=== PATIENT | female | born 1980 | race Caucasian/White ===

== ENCOUNTER 2019-12-15 17:47 | Emergency (ER) | payer MEDICAID, SELFPAY ==
[2019-12-15 17:51] VITALS: BP 134/79; PULSE 106; RESP 16; TEMP 36.6; O2SAT 94; BMI 23.6
--- NOTE | 2019-12-15 18:08 | W.ED.ANIMALB ---
HPI - Animal Bite General: Chief Complaint: Animal Bite Stated Complaint: animal bite Time Seen by Provider: 12/15/19 18:01 Source: patient Mode of arrival: ambulatory Limitations: no limitations History of Present Illness: HPI narrative: Patient comes into be evaluated for an injury that occurred from a cat bite on Friday. Patient states that is her animal and she is able to monitor it and it appears well. Patient's reports that her tetanus last one was in 1997 but she would like to go to the health department to get updated. Patient is concerned due to some redness surrounding the area and some purulent drainage from the wound itself. Patient appears well. Patient appears in no severe distress. Review of Systems General: Reports: 10 or more systems reviewed and unremarkable except in HPI and below Skin/Breast: Reports: redness PFSH ED PFSH: Statuses (acute, chronic, etc) shown below reflect problem list status as previously entered and may not be historically accurate Social History Smoking and tobacco status: former smoker Physical Exam Const: COMMON NORMALS: no apparent distress and oriented x3 GENERAL APPEARANCE: cooperative HENMT: COMMON NORMALS: normocephalic, external ears normal, EAC's normal, TM's normal bilaterally and external nose normal HEAD & SCALP: normal to inspection and normocephalic FACE & SINUS: normal facial exam NOSE: external nose normal GENERAL EAR: hearing not grossly impaired EXTERNAL EAR: Yes external ears normal EXTERNAL AUDITORY CANAL: EAC's normal TYMPANIC MEMBRANE: TM's normal bilaterally MOUTH: oral and palatal mucosa normal THROAT: posterior oropharynx normal Eye: COMMON NORMALS: PERRL and EOMs intact bilaterally PUPIL: Yes PERRL Neck/C-Spine: COMMON NORMALS: full ROM and no lymphadenopathy Lymph: LYMPHATIC: no lymphedema noted Chest: COMMONS NORMALS: inspection of chest normal and palpation of chest normal Resp: COMMON NORMALS: normal respiratory effort and clear to auscultation bilaterally AUSCULTATION: clear to auscultation bilaterally Cardio: COMMON NORMALS: regular rate and regular rhythm RATE: regular rate RHYTHM: regular rhythm GI: COMMON NORMALS: normal to inspection, nondistended, normoactive bowel sounds and non-tender : COMMON NORMALS: Yes no CVA tenderness BLADDER/KIDNEY EXAM: Yes no CVA tenderness Back/Pelvis: COMMON NORMALS: no CVA tenderness and thoracic and lumbar spine normal to inspection Extremity: GENERAL: Yes edema RIGHT UPPER EXTREMITY: Yes lower arm (6 cm area of redness surrounding puncture wound, minimal swelling) Neuro: COMMON NORMALS: oriented x3, moves all extremities and no focal motor deficits Psych: COMMON NORMALS: mental status grossly normal and cooperative Skin: COMMON NORMALS: no rashes or lesions noted GENERAL SKIN EXAM: no rashes or lesions noted Course Vital Signs: Vital signs: Vital Signs Temperature 97.6 F 12/15/19 18:22 Pulse Rate 97 12/15/19 18:22 Respiratory Rate 16 12/15/19 18:22 Blood Pressure 116/72 12/15/19 18:22 Pulse Oximetry 98 12/15/19 18:22 MDM - Animal Bite MDM Narrative: Medical decision making narrative: Patient comes in today for complaints of injury to the right forearm from her cat. Cat had bit her 2 days ago patient was concerned because yesterday she noted increased redness and tenderness to the puncture wound and was able to express some purulent drainage. Patient states today that the pain is better but she has surrounding tissue redness that she is concerned about. Exam notes erythema to the right forearm. Respirations are even lungs are clear to auscultation. Vital signs are stable. Differential diagnosis includes cellulitis, need for prophylaxis tetanus and rabies, puncture wound, foreign body. No foreign body was noted in the wound. Area is slightly tender but not painful. Reviewed exam with patient with recommendations for treatment and need for follow-up. Also discussed rabies and monitoring her pet. Patient reports understanding and agreed to plan. Discharge Plan Discharge Patient Disposition: Home, Self-Care Clinical Impression: Bite by animal Cellulitis Qualifiers: Site of cellulitis: extremity Site of cellulitis of extremity: upper extremity Laterality: right Qualified Code(s): L03.113 - Cellulitis of right upper limb Condition: Stable Prescriptions: New clindamycin HCl 150 mg capsule 300 mg PO Q8H 7 Days Qty: 42 RF: 0 Discharge Orders: Discharge Order (Routine); Ordered 12/15/19 Ordered By: Philip Lima Referrals: Armando Maloney MD [Primary Care Provider] - Butch Otero MD [Family Provider] - Discharge Diet: Usual diet Discharge Activity: Resume usual activity Patient Instructions: Cellulitis (ED) Activity Restrictions/Additional Instructions: Drink plenty of water with medications Activity as tolerated Acetaminophen and ibuprofen as needed for pain Take antibiotics as directed Follow-up with primary care in one week as needed Return to ER for worsening signs and symptom Take pet to vet for any concerns of illness Discharge Date/Time: 12/15/19 18:23 Coding Level of Care Code ED [place] Worker for Betty Fwdarrell Exam Problem Focused
[2019-12-15 18:09] VITALS: BP 115/73; PULSE 98; RESP 18; TEMP 36.3; O2SAT 97
[2019-12-15 18:22] VITALS: BP 116/72; PULSE 97; RESP 16; TEMP 36.4; O2SAT 98
== END 2019-12-15 18:23 | disposition home or self-care (01) ==
PROVIDERS: Emergency Provider Nurse Practitioner Family; Family Provider Family Medicine; PCP Obstetrics & Gynecology
DX: L03.113 Cellulitis of right upper limb (principal); Z87.891 Personal history of nicotine dependence; W55.01XA Bitten by cat, initial encounter
CPT/HCPCS: 99281

== ENCOUNTER → 2020-09-20 10:39 | Outpatient (BNVA) | payer MEDICAID, SELFPAY | PROVIDERS: Family Provider Family Medicine; PCP Obstetrics & Gynecology; Visit Provider Nurse Practitioner Family | DX: Z20.828 Contact with and (suspected) exposure to other viral communicable diseases (principal) | CPT/HCPCS: 87635 ==

== ENCOUNTER 2020-11-15 10:21 | Outpatient (CLI) | payer BC, MEDICAID, SELFPAY ==
--- NOTE | 2020-11-15 10:30 | MM_ITS ---
WS: [id number] SCREENING DIGITAL MAMMOGRAM WITH CAD HISTORY: SCREENING COMPARISON: None available. Bilateral CC and MLO views submitted. Computer aided detection analyzed. Breast composition: The breasts are heterogeneously dense, which may obscure small masses. No suspici ous masses, microcalcifications or architectural distortion. MM/[place] [id number] IMPRESSION: BI-RADS: 1-Negative FOLLOW UP: 1 Year Follow-up
== END 2020-11-15 10:22 | disposition home or self-care (01) ==
LOC: RADSHAW 10:28
PROVIDERS: PCP Nurse Practitioner Women's Health; Visit Provider Obstetrics & Gynecology
DX: Z12.31 Encounter for screening mammogram for malignant neoplasm of breast (principal)
CPT/HCPCS: 77067

== ENCOUNTER → 2021-10-17 14:58 | Outpatient (BNVA) | payer BC, MEDICAID, SELFPAY | PROVIDERS: PCP Nurse Practitioner Women's Health; Visit Provider Nurse Practitioner Women's Health | DX: Z01.419 Encounter for gynecological examination (general) (routine) without abnormal findings (principal) | CPT/HCPCS: 88175 ==

== ENCOUNTER → 2021-11-08 08:39 | Outpatient (BNVA) | payer BC, MEDICAID, SELFPAY | PROVIDERS: PCP Nurse Practitioner Women's Health; Visit Provider Nurse Practitioner Women's Health | DX: Z30.46 Encounter for surveillance of implantable subdermal contraceptive (principal) | CPT/HCPCS: 81025 ==

== ENCOUNTER 2021-11-16 09:55 | Outpatient (CLI) | payer BC, MEDICAID, SELFPAY ==
--- NOTE | 2021-11-16 10:00 | MM_ITS ---
WS: [id number] SCREENING DIGITAL MAMMOGRAM WITH CAD HISTORY: Z12.39 - Encounter for other screening for malignant neoplasm COMPARISON: 11/15/2020 Bilateral CC and MLO views submitted. Computer aided detection analyzed. Breast composition: The breasts are heterogeneously dense, which may obscure small masses. Very subtle asymmetry measuring 10 mm in the medial posterior RIGHT breast. Otherwise the parenchyma is stable. No architectural distortion. MM/[place] [id number] IMPRESSION: BI-RADS: 0-Incomplete: Need additional imaging evaluation FOLLOW UP: Need Additional Imaging RIGHT breast: Spot compression views (CC ). True ML. Ultrasound to follow if ab normality persists.
== END 2021-11-16 09:56 | disposition home or self-care (01) ==
LOC: RADSHAW 10:00
PROVIDERS: PCP Nurse Practitioner Women's Health; Visit Provider Nurse Practitioner Women's Health
DX: Z12.31 Encounter for screening mammogram for malignant neoplasm of breast (principal)
CPT/HCPCS: 77067

== ENCOUNTER 2021-12-04 09:02 | Outpatient (CLI) | payer BC, MEDICAID, SELFPAY ==
--- NOTE | 2021-12-04 09:00 | MM_ITS ---
WS: [id number] ADDITIONAL VIEWS RIGHT BREAST HISTORY: R92.8 - Other abnormal and inconclusive findings on diagnostic imaging. COMPARISON: 2 and 11/15/2020 Compression views right CC and MLO projection. True ML also submitted. The asymmetry noted in the posterior medial RIGHT breast resolves with additional imaging. No persist ent abnormality. MM/[place] [id number] IMPRESSION: BI-RADS: 2-Benign FOLLOW-UP: 1 Year Follow-up
== END 2021-12-04 09:03 | disposition home or self-care (01) ==
LOC: RADSHAW 09:04
PROVIDERS: PCP Nurse Practitioner Women's Health; Visit Provider Nurse Practitioner Women's Health
DX: R92.8 Other abnormal and inconclusive findings on diagnostic imaging of breast (principal)
CPT/HCPCS: 77065

== ENCOUNTER 2022-12-04 10:48 | Outpatient (CLI) | payer BC, MEDICAID, SELFPAY ==
--- NOTE | 2022-12-04 11:09 | MM_ITS ---
WS: [id number] BILATERAL SCREENING DIGITAL TOMOSYNTHESIS MAMMOGRAM WITH CAD HISTORY: SCREENING COMPARISON: 11/16/2021, 11/15/2020 Bilateral CC and MLO views with tomosynthesis and synthetic mammography submitted. Computer aided det ection analyzed. Breast composition: The breasts are heterogeneously dense, which may obscure small masses. No suspici ous masses, microcalcifications or architectural distortion. MM/[place] [id number] IMPRESSION: BI-RADS: 1-Negative FOLLOW UP: 1 Year Follow-up
== END 2022-12-04 10:49 | disposition home or self-care (01) ==
PROVIDERS: PCP Nurse Practitioner Women's Health; Visit Provider Nurse Practitioner Women's Health
DX: Z12.31 Encounter for screening mammogram for malignant neoplasm of breast (principal)
CPT/HCPCS: 77063; 77067

== ENCOUNTER 2023-12-08 08:45 | Outpatient (CLI) | payer MEDICAID, SELFPAY ==
--- NOTE | 2023-12-08 08:56 | MM_ITS ---
WS: [id number] BILATERAL SCREENING DIGITAL TOMOSYNTHESIS MAMMOGRAM WITH CAD HISTORY: SCREENING COMPARISON: 12/04/2022, 12/04/2021 and 11/16/2021, 11/15/2020 Bilateral CC and MLO views with tomosynthesis and synthetic mammography submitted. Computer aided det ection analyzed. Breast composition: The breasts are extremely dense, which lowers the sensitivity of mammography. No suspicious masses, microcalcifications or architectural distortion. The asymmetries within each breas t are stable over multiple prior years. IMPRESSION: MM/[place] [id number] BI-RADS: 2-Benign FOLLOW UP: 1 Year Follow-up
== END 2023-12-08 08:46 | disposition home or self-care (01) ==
LOC: RAD 08:45
PROVIDERS: PCP Family Medicine Adult Medicine; Visit Provider Nurse Practitioner Women's Health
DX: Z12.31 Encounter for screening mammogram for malignant neoplasm of breast (principal); R92.30 Dense breasts, unspecified; N64.89 Other specified disorders of breast
CPT/HCPCS: 77063; 77067

== ENCOUNTER 2023-12-30 14:32 | Emergency (ER) | payer MEDICAID, SELFPAY ==
[2023-12-30 14:40] VITALS: BP 109/61; PULSE 87; RESP 18; TEMP 36.8; O2SAT 95; BMI 26.5
--- NOTE | 2023-12-30 14:44 | XR_ITS ---
WS: [id number] Exam: XR wrist LT min 3V* [id number] Date/Time of Exam: 12/30/2023 2:44 PM Reason For Exam: injury There is an impacted markedly comminuted fracture of the distal radius with significant dorsal angula tion and displacement of the distal fragments. There is also avulsion of the ulnar styloid. There is significant shortening of the radius. Soft tissue edema and deformity of the wrist. IMPRESSION: 1. Severely comminuted angulated displaced fracture of the distal radius as detailed above. 2. Displaced ulnar styloid fracture.
--- NOTE | 2023-12-30 14:59 | ED_ITS ---
HPI - Extremity Problem General: Chief complaint: Extremity Injury, Upper Stated complaint: left wrist pain Time Seen by Provider: 12/30/23 14:47 Source: patient Mode of arrival: ambulatory Limitations: no limitations History of Present Illness: 43-year-old female states she was skatin g and fell on outstretched left arm states she had injured her left wrist when she fell on it she has obvious deform ity to that left wrist. Patient denies any other injuries denies hitting head rates her pain a 5 out of 10 Associated symptoms: Deny chest pain, fever(s) or rash Review of Systems Const: Denies: fever(s) or chills ENMT: Denies: throat pain or dental pain Card: Denies: chest pain Resp: Denies: dyspnea GI: Denies: abdominal pain, nausea, vomiting or diarrhea Musc: Reports: extremity pain; Denies: neck pain or back pain Skin/Breast: Denies: rash Neuro: Denies: headache(s) PFSH ED PFSH: Medical History Atopic dermatitis and related condition Blindness of left eye Allergic reaction History of gestational diabetes Had GDM with pregnancies in 2002, 2005, and 2008. 06/04/2018: Fasting glucose 81. A1c 5.0. Surgical History History of dilation and curettage (~03/2003) For retained placental fragments after delivery of IUFD. Family History Grandmother Breast cancer maternal--dx age 75 Mother Hypertension Stroke Grandfather Diabetes Maternal Stroke Maternal Denies family history of Colon cancer Ovarian cancer Heart disease Hypercholesteremia Uterine cancer Thyroid disease Physical Exam Const: COMMON NORMALS: no acute distress, patient oriented x3 and healthy appearing HENMT: COMMON NORMALS: normocephalic and atraumatic HEAD & SCALP: normocephalic and atraumatic Neck/C-Spine: COMMON NORMALS: full ROM and supple Chest: COMMONS NORMALS: normal inspection of the chest Resp: COMMON NORMALS: normal respiratory effort Cardio: COMMON NORMALS: regular rate, regular rhythm and No murmurs present (Cardio) RATE: regular rate RHYTHM: regular rhythm Extremity: COMMON NORMALS: full ROM NARRATIVE EXTREMITY EXAM: Obvious deformity to the left wrist distal pulses sensation intact Abrasion noted to right knee as well Neuro: COMMON NORMALS: patient oriented x3, moves all extremities and no focal motor deficits Psych: COMMON NORMALS: mental status grossly normal, Normal thought process present and cooperative THOUGHT PROCESS: Normal thought process present Skin: COMMON NORMALS: no rashes or lesions noted and no wounds GENERAL SKIN EXAM: no rashes or lesions noted Procedures Orthopedic Fracture Reduction Fracture #1: Time Out Performed: Yes Side: right Fracture Reduction Location: radius and ulna Analgesia: procedural sedation Technique: direct manipulation Post Reduction X-rays Demonstrate: anatomical reduction Post-reduction neuro exam: intact Post-reduction vascular exam: intact Splint Applied: Yes Patient Tolerated Procedure: well Procedural Sedation Indication: fracture/dislocation reduction ASA Class: I Time of Last PO Intake: 12:00 Preparation: vehicle monitor technician applied and pulse oximeter IV Propofol dose (mg): 80 Patient Tolerated Procedure: well Complications: none Course Vital Signs: Vital signs: Vital Signs Temperature 98.2 F 12/30/23 14:40 Pulse Rate 91 12/30/23 16:20 Respiratory Rate 17 12/30/23 16:00 Blood Pressure 128/99 12/30/23 16:20 Pulse Oximetry 100 12/30/23 16:20 Oxygen Delivery Me thod Room Air 12/30/23 16:20 MDM - Extremity (Nontraumatic) Medical Decision Making Patient presents here with a right wrist fracture from a fall was displaced patient was sedated and reduced placed in a splint we will get her follow-up with orthopedics she is return if worsening she understands agrees to plan Medical Records I reviewed the patient's medical records. All radiology interpretation(s) finalized by discharge Discharge Plan Discharge Patient Disposition: Home Clinical Impression: Fracture of wrist Qualifiers: Encounter type: initial encounter Fracture type: closed Laterality: right Qualified Code(s): S62.101A - Fracture of unspecified carpal bone, right wrist, initial encounter for closed fracture Condition: Stable Prescriptions: New hydrocodone-acetaminophen 5-325 mg tablet 1 tab PO Q6H PRN (Reason: pain) Qty: 14 0RF ondansetron 4 mg tablet,disintegrating 4 mg PO Q6H PRN (Reason: nausea and vomiting) Qty: 14 0RF No Action lidocaine-epinephrine (PF) 2 %-1:200,000 solution 3 ml SUBCUT ONCE Qty: 1 0RF povidone-iodine [Betadine Swabsticks] 10 % swab 1 applic topical ONCE Qty: 1 0RF Nexplanon 68 mg implant 1 implant subdermal ONCE Qty: 1 0RF fexofenadine [Maddison Allergy] 60 mg tablet 60 mg PO BID biotin 1 mg capsule 1 mg PO DAILY Nexplanon 68 mg implant 1 implant SUBDERMAL ONCE prednisone 20 mg tablet 60 mg PO DAILY 5 Days Qty: 15 0RF hydrocortisone 2.5 % cream 1 applic topical BID PRN (Reason: skin irritation) Qty: 28 0RF Discharge Orders: Discharge ED (Routine); Ordered 12/30/23 Ordered By: Marcelo Cazares Referrals: Fausto Darnell MD [Primary Care Provider] - Maurice Bliss DO [Physician] - 1-3 days Discharge Diet: Advance as tolerated Discharge Activity: Resume usual activity Patient Instructions: Wrist Fracture in Adults (ED), Opioid Safety Coding Level of Care Code ED Printing Machine Operator for Betty Gonzales
[2023-12-30] MEDS: sodium chloride 0.9% 1,000 ML 999 ML IV (15:40)
[2023-12-30 16:00] VITALS: BP 162/93; PULSE 104; RESP 17; O2SAT 100
[2023-12-30] MEDS: propofol 10 mg/mL SDV 20 mL 100 MG IVP (16:00)
--- NOTE | 2023-12-30 16:03 | XRR_ITS ---
PROCEDURE INFORMATION: Exam: XR Left Wrist Exam date and time: 12/30/2023 4:05 PM Age: 43 years old Clinical indication: Injury or trauma; Fall; Blunt trauma (contusions or hematomas); Wrist; Left; Additional info: Post reduction TECHNIQUE: Imaging protocol: Radiologic exam of the left wrist. Views: 1 or 2 views. COMPARISON: CR XR wrist LT min 3V* [id number] 12/30/2023 2:49 PM FINDINGS: Bones/joints: Postreduction views of the left wrist were obtained through a cast demonstrating marked interval improvement of alignment of the distal radial and ulnar styloid fractures. Displacement and impaction deformities have been corrected. Soft tissues: Obscured. XR/XR wrist LT 2V [id number] IMPRESSION: As above.
--- NOTE | 2023-12-30 16:05 | PC.NURSE ---
PROPOFOL ADMINISTERED BY DR. CHAVEZ DURING PROCEDURE.
--- NOTE | 2023-12-30 16:09 | XRR_ITS ---
PROCEDURE INFORMATION: Exam: XR Right Knee Exam date and time: 12/30/2023 4:15 PM Age: 43 years old Clinical indication: Injury or trauma; Fall; Blunt trauma; Knee; Right TECHNIQUE: Imaging protocol: Radiologic exam of the right knee. Views: 3 views. COMPARISON: No relevant prior studies available. FINDINGS: Bones/joints: Normal. Soft tissues: Normal. XR/XR knee RT 3V* [id number] IMPRESSION: No acute findings.
[2023-12-30 16:20] VITALS: BP 128/99; PULSE 91; O2SAT 100
[2023-12-30 16:40] VITALS: BP 144/90; PULSE 103; O2SAT 98
--- NOTE | 2023-12-31 12:00 | DCPLANNER ---
Message sent to Ortho for a follow up -- wrist FX.
== END 2023-12-30 16:41 | disposition home or self-care (01) ==
PROVIDERS: Emergency Provider Emergency Medicine; PCP Family Medicine Adult Medicine
DX: S52.592A Other fractures of lower end of left radius, initial encounter for closed fracture (principal); S52.612A Displaced fracture of left ulna styloid process, initial encounter for closed fracture; W19.XXXA Unspecified fall, initial encounter; Y93.51 Activity, roller skating (inline) and skateboarding
CPT/HCPCS: 25605; 73100; 73110; 73562; 96360; 99152; 99285; J2704; J7030

== ENCOUNTER → 2024-01-01 15:44 | Outpatient (BNVA) | payer MEDICAID, SELFPAY | PROVIDERS: PCP Family Medicine Adult Medicine; Referring Provider Emergency Medicine; Visit Provider Student in an Organized Health Care Education/Training Program | DX: S62.101A Fracture of unspecified carpal bone, right wrist, initial encounter for closed fracture (principal); S52.502A Unspecified fracture of the lower end of left radius, initial encounter for closed fracture; W19.XXXA Unspecified fall, initial encounter; Y93.51 Activity, roller skating (inline) and skateboarding; Y92.410 Unspecified street and highway as the place of occurrence of the external cause | CPT/HCPCS: 73110 ==

== ENCOUNTER 2024-01-02 12:15 | Day surgery (SDC) | payer MEDICAID, SELFPAY ==
[2024-01-02] VITALS (15 sets, daily range): BP systolic 102–144; BP diastolic 56–91; PULSE 83–107; RESP 16–20; TEMP 36.3–37.1; O2SAT 94–98
--- NOTE | 2024-01-02 | XR_ITS ---
WS: [id number] Left wrist, 3 views, 01/02/2024 Clinical Data: [facility] P[facility] Comparison: Left wrist, 01/01/2024. Findings: Dr. Bliss performed internal fixation of a distal left radial fracture. Impression: Internal fixation of distal left radial fracture.
--- NOTE | 2024-01-02 12:52 | W.PM.OPSUD ---
Surgery/Procedure H&P Update DATE OF PROCEDURE: January 02, 2024 DATE H&P PERFORMED: 01/01/24 H&P UPDATE INFORMATION: I have reviewed H&P completed within last 30 days, I have examined patient prior to procedure and No changes to prior documentation CHANGES TO PREVIOUS DOCUMENTATION: None PREOP DIAGNOSIS: Left distal radius and ulnar styloid fracture PRIMARY INDICATION FOR PROCEDURE: Left distal radius and ulna styloid fracture PLANNED PROCEDURE: Operation Date: 01/02/24 14:20 Proposed Procedures p ORIF Distal Radius(Left) - Maurice Bliss DO
[2024-01-02 13:02] LABS: OR HCG Qualitative Urine Negative (Negative)
[2024-01-02] MEDS: sodium chloride 0.9% 1,000 ML 30 ML IV (13:07)
[2024-01-02] MEDS: acetaminophen 1,000 MG/100 ML PIGGYBACK 400 MG IV (13:09)
[2024-01-02] MEDS: ketorolac 30 mg/mL INJ IVP (13:12)
[2024-01-02] MEDS: scopolamine 1.5 Patch 1 PATCH TRANSDERMA (13:13)
--- NOTE | 2024-01-02 13:15 | ANES.PREANE2 ---
Pre-Anesthetic Assessment Height/Weight: Height 1.57 m Weight 65.771 kg BP O2 Del Method 144/91 Room Air 01/02/24 13:13 01/02/24 12:38 Preop Diagnosis: Left distal radius and ulnar styloid fracture Operation Date: 01/02/24 14:20 Proposed Procedures p ORIF Distal Radius(Left) - Maurice Bliss, DO Was Beta Camille taken within 24 hours: N/A Was Clonidine taken within 24 hours: N/A Last intake: Intake Last Liquid Date 01/01/24 Last Liquid Time 23:50 Last Solid Date 01/01/24 Last Solid Time 18:00 Social No alcohol and No tobacco Exam alert and oriented x 3 Airway Submandibular: within normal limits Cervical ROM: within normal limits Mallampati: Class II History/ROS No significant history except as noted and No significant complaints Anesthetic Plan ASA status: 2 Anesthesia: General and Regional (specify below) Other: Supraclavicular block per surgeon request for post op pain Risk of > 500 ml blood loss (7ml/kg in children): No Medications/Allergies Home Medications Medication Instructions Recorded Confirmed Last Taken Type biotin 1 mg capsule 1 mg PO DAILY 07/03/20 01/01/24 01/01/24 History etonogestrel 68 mg subdermal 1 implant subdermal ONCE placed 07/03/20 01/01/24 Unknown History implant (Nexplanon) fexofenadine 60 mg tablet (Maddison 60 mg PO BID 11/08/21 01/01/24 Unknown History Allergy) hydrocortisone 2.5 % topical cream 1 applic topical BID PRN skin 09/17/23 01/01/24 Unknown Rx irritation #28 grams hydrocodone 5 mg-acetaminophen 325 1 tab PO Q6H PRN pain #14 tabs 12/30/23 01/01/24 01/01/24 08:00 Rx mg tablet ondansetron 4 mg disintegrating 4 mg PO Q6H PRN nausea and 12/30/23 01/01/24 Unknown Rx tablet vomiting #14 tabs pimecrolimus 1 % topical cream 1 applic topical BID PRN itching 01/01/24 01/01/24 Unknown History Allergies Allergy/AdvReac Type Severity Reaction Status Date / Time No Known Allergies Allergy Verified 01/01/24 15:35 Current Medications Generic Name Dose Route Start Last Admin Trade Name Freq PRN Reason Stop Dose Admin Sodium Chloride 1,000 mls @ 30 mls/hr 01/02/24 13:00 01/02/24 13:07 Sodium Chloride 0.9% IV 30 mls/hr .Q24H MIKE Administration PFSH Anesthesia Medical History Atopic dermatitis and related condition Blindness of left eye Allergic reaction History of gestational diabetes Had GDM with pregnancies in 2002, 2005, and 2008. 06/04/2018: Fasting glucose 81. A1c 5.0. Surgical History History of dilation and curettage (~03/2003) For retained placental fragments after delivery of IUFD. Family History Grandmother Breast cancer maternal--dx age 75 Mother Hypertension Stroke Grandfather Diabetes Maternal Stroke Maternal Denies family history of Colon cancer Ovarian cancer Heart disease Hypercholesteremia Uterine cancer Thyroid disease Female Reproductive History Date of last menstrual period: 12/17/23 Data Anesthesia Cardiac Studies: No Data to Display
--- NOTE | 2024-01-02 13:56 | SUR.PREOP ---
Nerve block to left upper arm completed per Dr. Mcintosh, anesthesia. Versed 3 mg given per anesthesia prior to procedure. O2 at 2 L via nasal cannula applied. Sao2 98%. Pt resting comfortably now. Call light within reach. Continuous pulse ox in place.
[2024-01-02] MEDS: ceFAZolin 2,000 MG in sodium chloride 0.9% (plus) 50 ML 100 MG IV (16:06)
--- NOTE | 2024-01-02 17:12 | P.BOP_ITS ---
Date of Procedure: 01/02/2024 Surgeon: Maurice Bliss DO Behavioral Health Clinician(s): Eino Bliss PA-C Procedure(s) performed: Left distal radius open reduction internal fixation (3 part intra-articular) Findings of the procedure(s): Patient found to have three-part intra-articular left distal radius fracture, underwent procedure as planned with no complications or issues stable DRUJ joint. Estimated blood loss: 5 mL Specimen(s) removed: None Post-operative diagnosis: Left distal radius fracture three-part intra-articular
--- NOTE | 2024-01-02 17:13 | P.OP_ITS ---
Operative Report Date of procedure: January 02, 2024 Surgeon: Maurice Bliss DO Biophysics Teacher: Enio Bliss PA-C: PA was necessary for assistance in this case with hand positioning to execute the procedure, retraction and protection of neurovascular structures as well as to assist with wound closure and dressing application. Procedure: Preop Diagnosis ?Left?distal?radius?fracture? Procedure: Post-op diagnosis: Same, 3 part intra-articular Procedure done: Left?distal?radius?open reduction internal fixation, 3-part intra-articular Implants: ?Arthrex left 3-hole standard volar locking plate Combination of locking and nonlocking screws 2.7 mm?distal Combination of locking and nonlocking screws 3.5 mm proximal Surgeon: Maurice Bliss DO Anesthesia: General and nerve Block (Regional) Estimated blood loss: 5 mL Tourniquet time: 29 minutes IV fluids: See anesthesia record Complications: None Findings: See operative report narrative Condition: stable Disposition: same day Brief History: Patient is a 43-year-old female who presented to my office for a ixdrt-[id number]-[id number] left?distal?radius?fracture.? Patient has significant comminution and shortening as well as dorsal angulation patient active and at this point time through shared decision making patient like to proceed with a left?distal?radius?ORIF.? We had a detailed discussion in the office about nonoperative and operative intervention.? At this point time I feel through shared decision? best option would be open reduction internal fixation she is active, young To optimize her postoperative outcome with early range of motion and as result through shared decision making patient would like to proceed with ORIF left?distal?radius?fracture.? Detail the risk benefits complication alternatives to treatment option.? Understanding risk for surgery patient elects to proceed with surgical intervention.? All questions been answered at this time. Procedure: Patient seen and evaluated in the preoperative holding area.? Consent reviewed and signed with patient.? Correct extremities were marked and consent was reviewed and signed.? Patient was seen and evaluated by anesthesia department.? Underwent regional anesthesia. Once cleared for surgery pt was taken back to the operative suite.? Patient was then transported into the operative suite and kept on the OR gurney, all bony prominences well-padded patient was appropriate secured to bed in supine position.? An armboard was applied to the left upper extremity.? The left upper extremity had a nonsterile tourniquet applied.? Patient subsequently was then prepped and draped in standard orthopedic fashion she underwent anesthesia per the anesthesia department.? A final timeout was performed.? Patient received appropriate preoperative antibiotics. Esmarch was used exsanguinate the left upper extremity and tourniquet was ins ufflated to 250 mmHg. A standard modified FCR volar approach was performed to the left?distal?radius.? Sharp scalpel incision through skin and subcutaneous tissue.? I then switched to Littler dissection scissors identify the FCR tendon releases out of the sheath both proximally and?distally mobilized the tendon ulnarly and then subsequently incised the floor of the FCR tendon sheath with care to just incise the floor.? I then bluntly sweep the FPL tendon muscle belly ulnarly and placed blunt self- retaining retractor.? At this point time I direct visualization of the pronator quadratus which was incised in standard L fashion off the radial and?distal?border in the?distal?radius?and fracture site was scraped clean of interposed muscle belly.? I then identified the 3 part intra-articular?dis brigette?radius?fracture.? This was subsequently opened above and freed of interposing muscle belly as well as periosteum and fracture hematoma.? I did have to utilize my [place] which was placed through the fracture pattern and disengage the fracture and performed manual manipulation and anatomic reduction of the?distal?radius?fracture.? ?Once satisfied with reduction and had appropriate anatomic reduction of the volar cortex.? This was confirmed with mini C arm in multiple orthogonal imaging.? At this point time? I selected a Arthrex anatomic?distal?radius?plate utilizing a standard 3-hole plate which would have appropriate spread?distally.? This was then placed up to the?distal?radius?while maintaining my reduction, pins were placed?distally and proximally to confirm appropriate placement of the plate along the?distal?radius.? Minor adjustments were made and once I was satisfied I then subsequently drilled a bicortical 3.5 screw proximally in the oblong hole to allow for appropriate sliding of the?distal?radius?plate appropriately to perfect position on the?distal?radius.? This had excellent fixation and purchase and brought the plate to bone.? While maintaining my reduction I then confirmed in multiple orthogonal imaging that my plate was in appropriate position.? Once satisfied with my position I then subsequently placed the peek targeting guide on the?distal?locking screws with Arthrex.? The locking guide was then subsequently loaded and I subsequently drilled and placed a fully threaded cortical screw to compress the plate to bone for the?distal?fracture fragment.? This was performed with plan to then remove this and placed a shorter locking screw had bicortical fixation with excellent purchase and appropriate reduction of my volar tilt and bringing plate to bone of the?distal?fragment and plate.? Once I was satisfied with my plate position as well as reduction of the?distal?radius?which was confirmed on AP oblique and lateral imaging I then subsequently drilled measured and placed 4 locking screws around this cortical screw.? Then I subsequently removed the cortical screw and placed a shorter locking screw that did not penetrate the dorsal cortex.?? This completed my?distal?fixation.? I did utilize mini C arm to confirm appropriate placement of the screws these were all within the?distal?radius?and no joint involvement within the radiocarpal joint or the DRUJ.? These had appropriate subchondral support and maintenance of reduction and fixation of the?distal?radius?fracture.? ?I then turned my attention proximally and then I screwed in the locking guides for my final to screws proximally these were then subsequently drilled measured and appropriate length locking screws were then placed proximally with excellent fixation and locking technology into the plate.? This completed my construct.? The peek guide was subsequently removed and final imaging of the left?distal?radius?open reduction internal fixation was taken of AP lateral as well and is orthogonal imaging.? I then took a inclination view which showed my radial styloid screw was out of the penetration of the joint.? All my?distal?screws were appropriate length did not penetrate dorsal cortex and did not penetrate the joint.? This completed my fixation.? Smooth wrist range of motion was then noted with no evidence of clicking. Wrist was then taken through pronation supination and stressed the DRUJ which was found to be stable.? The wound was then thoroughly irrigated.? Tourniquet was then subsequently deflated.? Hemostasis satisfactory with bipolar electrocautery.? I then subs equently placed interrupted 3-0 Vicryl sutures for subcutaneous tissue and then subsequently placed a nylon the skin for closure.? Incision was then dressed with Xeroform 4 x 4's Kerlix cast padding and a volar Ortho-Glass splint was then applied with Harish wrap and placed in a sling.? Disposition: Patient taken to PACU in stable condition recovering well receive appropriate discharge instructions as well as pain medication postoperatively.? Maintain splint until follow-up.? Nonweightbearing to operative upper extremity, We will follow-up with orthopedics in the office in 2 weeks.? If any questions or concerns feel free to contact the office.
--- NOTE | 2024-01-02 17:32 | P.PCN_ITS ---
PACU note Narrative: Patient is a 43-year-old female that just underwent a left wrist ORIF. Patient transferred to PACU in stable condition. Pain is well controlled. Dressing and splint on hand is dry and in place. Patient's fingers are warm and well- perfused. normal cap refill under 2 seconds. Unable to assess any motor or sensory function due to residual anesthetic block. Exam: somnolent, arousable Disposition: discharged
--- NOTE | 2024-01-02 17:57 | ANE.PACU2 ---
Inpatient post-anesthesia follow up: Airway intact: Yes Vital signs: Temperature 97.5 F Pulse Rate 96 Respiratory Rate 17 Blood Pressure 121/69 Pulse Oximetry 96 Oxygen Delivery Me thod Room Air Oxygen Flow Rate 6 Fraction of Inspir ed Oxygen Hydration adequate: Yes Nausea and vomiting: No Pain level: Other Pain level: Denies pain Mental status: Baseline
== END 2024-01-02 19:00 | disposition home or self-care (01) ==
PROVIDERS: Student in an Organized Health Care Education/Training Program; PCP Family Medicine Adult Medicine; Visit Provider Student in an Organized Health Care Education/Training Program
PROC: (CPT 25609; principal; 2024-01-02 14:00)
DX: S52.572A Other intraarticular fracture of lower end of left radius, initial encounter for closed fracture (principal); W19.XXXA Unspecified fall, initial encounter; Y93.51 Activity, roller skating (inline) and skateboarding
CPT/HCPCS: 25609; 73100; 76000; 81025; 84703; C1713; J0131; J0690; J1100; J1885; J2371; J2405; J2704; J2795; J3490; J7030

== ENCOUNTER → 2024-01-20 13:08 | Outpatient (BNVA) | payer MEDICAID, SELFPAY | PROVIDERS: PCP Family Medicine Adult Medicine; Visit Provider Physician Assistant | DX: S52.502D Unspecified fracture of the lower end of left radius, subsequent encounter for closed fracture with routine healing; X58.XXXD Exposure to other specified factors, subsequent encounter | CPT/HCPCS: 73110 ==

== ENCOUNTER → 2024-01-28 13:50 | Outpatient (BNVA) | payer MEDICAID, SELFPAY | PROVIDERS: PCP Family Medicine Adult Medicine; Visit Provider Nurse Practitioner Women's Health | DX: Z12.4 Encounter for screening for malignant neoplasm of cervix (principal) | CPT/HCPCS: 87624 ==

== ENCOUNTER → 2024-02-24 14:25 | Outpatient (BNVA) | payer MEDICAID, SELFPAY | PROVIDERS: PCP Family Medicine Adult Medicine; Visit Provider Physician Assistant | DX: S52.502D Unspecified fracture of the lower end of left radius, subsequent encounter for closed fracture with routine healing; X58.XXXD Exposure to other specified factors, subsequent encounter | CPT/HCPCS: 73110 ==

== ENCOUNTER → 2024-04-08 14:24 | Outpatient (BNVA) | payer MEDICAID, SELFPAY | PROVIDERS: PCP Family Medicine Adult Medicine; Visit Provider Physician Assistant | DX: S52.502A Unspecified fracture of the lower end of left radius, initial encounter for closed fracture (principal); X58.XXXA Exposure to other specified factors, initial encounter | CPT/HCPCS: 73110 ==

== ENCOUNTER → 2024-08-10 13:59 | Outpatient (BNVA) | payer MEDICAID, SELFPAY | PROVIDERS: PCP Family Medicine Adult Medicine; Visit Provider Physician Assistant | DX: S52.502D Unspecified fracture of the lower end of left radius, subsequent encounter for closed fracture with routine healing; X58.XXXD Exposure to other specified factors, subsequent encounter; Z98.890 Other specified postprocedural states | CPT/HCPCS: 73110 ==

== ENCOUNTER → 2024-11-23 10:00 | Outpatient (BNVA) | payer MEDICAID, SELFPAY | PROVIDERS: Visit Provider Nurse Practitioner Women's Health | DX: Z30.46 Encounter for surveillance of implantable subdermal contraceptive (principal) | CPT/HCPCS: 81025 ==

== ENCOUNTER 2024-12-16 13:29 | Outpatient (CLI) | payer MEDICAID, SELFPAY ==
--- NOTE | 2024-12-16 13:40 | MM_ITS ---
WS: [id number] BILATERAL SCREENING DIGITAL TOMOSYNTHESIS MAMMOGRAM WITH CAD HISTORY: SCREENING COMPARISON: 12/04/2022, 12/08/2023, 11/15/2020 Bilateral CC and MLO views with tomosynthesis and synthetic mammography submitted. Computer aided detection analyzed. Breast composition: The breasts are heterogeneously dense, which may obscure small masses. No suspicious masses, microcalcifications or architectural distortion. Stable fibroglandular pattern of each breast. Stable asymmetry in the RIGHT axillary tail. MM/MM scr BI tomosynthesis [id number] IMPRESSION: BI-RADS: 2 - Benign FOLLOW UP: 1 Year Follow-up
== END 2024-12-16 13:30 | disposition home or self-care (01) ==
PROVIDERS: Visit Provider Nurse Practitioner Women's Health
DX: Z12.31 Encounter for screening mammogram for malignant neoplasm of breast (principal); R92.333 Mammographic heterogeneous density, bilateral breasts; R92.323 Mammographic fibroglandular density, bilateral breasts; N64.89 Other specified disorders of breast
CPT/HCPCS: 77063; 77067

== ENCOUNTER → 2025-07-07 09:41 | Outpatient (BNVA) | payer MEDICAID, SELFPAY | PROVIDERS: Visit Provider Family Medicine | DX: Z86.32 Personal history of gestational diabetes (principal); N92.6 Irregular menstruation, unspecified; Z13.6 Encounter for screening for cardiovascular disorders | CPT/HCPCS: 80053; 80061; 83036; 84443 ==

== ENCOUNTER 2025-08-18 09:26 | Day surgery (SDC) | payer MEDICAID, SELFPAY ==
[2025-08-18 09:45] VITALS: BP 136/90; PULSE 119; RESP 18; TEMP 36.7; O2SAT 98
--- NOTE | 2025-08-18 09:57 | P.HPUD_ITS ---
Surgery/Procedure H&P Update DATE OF PROCEDURE: August 18, 2025 DATE H&P PERFORMED: 07/20/25 H&P UPDATE INFORMATION: I have reviewed H&P completed within last 30 days, I have examined patient prior to procedure, No changes to prior documentation, H&P is in [facility] EMR on date indicated and Risks and benefits of the procedure reviewed PLANNED PROCEDURE: Operation Date: 08/18/25 11:55 Proposed Procedures p Colonoscopy 06348 G0121 Z12.11(Not Applicable) - Artur Avila MD
[2025-08-18 09:58] LABS: OR HCG Qualitative Urine Negative (Negative)
--- NOTE | 2025-08-18 10:46 | ANES.PREANE2 ---
Pre-Anesthetic Assessment Height/Weight: Height 1.57 m Temp Pulse Resp BP Pulse Ox O2 Del Method 98.0 F 119 H 18 136/90 98 Room Air 08/18/25 09:45 08/18/25 09:45 08/18/25 09:45 08/18/25 09:45 08/18/25 09:45 08/18/25 09:45 Preop Diagnosis: screen Operation Date: 08/18/25 11:55 Proposed Procedures p Colonoscopy 45775 G0121 Z12.11(Not Applicable) - Artur Avila MD Familial anesthetic complications: none Was Beta Camille taken within 24 hours: N/A Was Clonidine taken within 24 hours: N/A Last intake: Intake Last Liquid Date 08/17/25 Last Liquid Time 23:00 Last Solid Date 08/17/25 Last Solid Time 22:30 Social No alcohol and No tobacco Exam alert, oriented x 3, clear to auscultation bilaterally and regular rate & rhythm Airway Cervical ROM: within normal limits Mallampati: Class II Dentition: full History/ROS No significant complaints Pulmonary None reported CV/HEM None reported None reported Hepatic None reported GI None reported Metabolic None reported Musc/skel None reported Neuropsych None reported Anesthetic Plan ASA status: 1 Anesthesia: MAC Risk of > 500 ml blood loss (7ml/kg in children): No Medications/Allergies Home Medications ?Medication ?Instructions ?Recorded ?Confirmed ?Last Taken ?Type etonogestrel 68 mg subdermal 1 implant subdermal ONCE placed 07/03/20 08/15/25 08/17/25 History implant (Nexplanon) 1 IMPLANT estradiol 0.5 mg tablet 0.5 mg PO QDAY #90 tabs 11/23/24 08/15/25 08/17/25 Rx 0.5 mg clobetasol 0.025 % topical cream 1 applic topical BID #100 grams 07/07/25 08/15/25 08/17/25 Rx 1 applic levocetirizine 5 mg tablet 5 mg PO BID 08/01/25 08/15/25 08/17/25 History 5 mg Allergies Allergy/AdvReac Type Severity Reaction Status Date / Time cobalt Allergy Unknown Unknown Verified 08/18/25 09:42 gold Au 198 Allergy Unknown Unknown Verified 08/18/25 09:42 nickel Allergy Unknown Unknown Verified 08/18/25 09:42 Current Medications Generic Name Dose Route Start Last Admin Trade Name Freq PRN Reason Stop Dose Admin Sodium Chloride 1,000 mls @ 15 mls/hr 08/18/25 09:32 08/18/25 09:56 Sodium Chloride 0.9% IV 08/19/25 09:31 15 mls/hr .Q24H PRN Administration COLONOSCOPY FLUIDS PFSH Anesthesia Medical History Chronic left shoulder pain Irregular periods Atopic dermatitis and related condition Blindness of left eye defect Allergic reaction History of gestational diabetes Had GDM with pregnancies in 2002, 2005, and 2008. 06/04/2018: Fasting glucose 81. A1c 5.0. Surgical History S/P ORIF (open reduction internal fixation) fracture (~01/02/24) Left wrist; performed by Dr. Bliss at [facility] History of dilation and curettage (~03/2003) For retained placental fragments after delivery of IUFD. Family History Grandmother Breast cancer maternal--dx age 75 Mother Hypertension Stroke Grandfather Diabetes Maternal Stroke Maternal Denies family history of Colon cancer Ovarian cancer Heart disease Hypercholesteremia Uterine cancer Thyroid disease Social History Smoking and tobacco/nicotine status: former use of tobacco/nicotine Quit status (tobacco/nicotine): has quit using Year quit tobacco: 1997 Alcohol intake: never Substance/Drug Use: never Household members: spouse and children Marital status: Number of children: 2 Highest education level completed: High School Graduate Current occupational status: unemployed 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
[2025-08-18 11:19] VITALS: BP 104/70; PULSE 98; RESP 16; TEMP 36.3; O2SAT 95
[2025-08-18 11:35] VITALS: BP 108/76; PULSE 92; RESP 16; O2SAT 100
[2025-08-18 11:44] VITALS: BP 122/96; PULSE 87; RESP 16; O2SAT 96
== END 2025-08-18 11:49 | disposition home or self-care (01) ==
PROVIDERS: Anesthesiology; PCP Family Medicine; Visit Provider Surgery
PROC: 0DJD8ZZ Inspection of Lower Intestinal Tract, Via Natural or Artificial Opening Endoscopic (ICD-10-PCS; CPT 45378; principal; 2025-08-18 11:55)
DX: Z12.11 Encounter for screening for malignant neoplasm of colon (principal); Z87.891 Personal history of nicotine dependence
CPT/HCPCS: 45378; 81025; J2704; J7030